=== PATIENT | male | born 1975 | race Two or more races ===

== ENCOUNTER 2017-03-31 06:22 | Emergency (ER) | payer MEDICAID ==
[~2017-03-31] VITALS: Ht 175.3 cm; Wt 124.3 kg
[~2017-03-31 06:22] MED LIST: OME20GT PO; PEGINTRON; PROPANOLOL PO; RIBA200C12; [UNRECOGNIZED DRUG - CODE]
[2017-03-31 06:29] VITALS: BP 202/98
[2017-03-31] MEDS ORDERED: cloNIDine HCL 0.1 MG TAB PO ONE (06:45)
[2017-03-31] MEDS ORDERED: KETOROLAC TROMETH 60MG/2ML VIAL IM ONE (07:45)
== END 2017-03-31 08:27 | disposition home or self-care (01) ==
LOC: ER 06:24
DX: S46.001A Unspecified injury of muscle(s) and tendon(s) of the rotator cuff of right shoulder, initial encounter (principal); R03.0 Elevated blood-pressure reading, without diagnosis of hypertension; M62.830 Muscle spasm of back; Z88.6 Allergy status to analgesic agent; Z88.1 Allergy status to other antibiotic agents; Z79.899 Other long term (current) drug therapy; X58.XXXA Exposure to other specified factors, initial encounter; Y93.89 Activity, other specified; Y92.89 Other specified places as the place of occurrence of the external cause; Y99.8 Other external cause status
CPT/HCPCS: 96372; 99283; J1885

== ENCOUNTER 2019-09-25 21:53 | Emergency (ER) | payer MEDICAID ==
[~2019-09-25] VITALS: Ht 175.3 cm; Wt 122.9 kg
[~2019-09-25 21:53] MED LIST changes: -RIBA200C12; +RIBA200C38
[2019-09-25 22:43] LABS: Albumin 3.5 g/dL (3.4-5.0); Anion Gap 4 (5-15); Blood Urea Nitrogen 17 mg/dL (7-18); Calcium 8.6 mg/dL (8.5-10.1); Carbon Dioxide 29 mmol/L (21-32); Chloride 101 mmol/L (98-107); GFR African American 103 mL/min; GFR Non-African American 86 mL/min; Glucose 99 mg/dL (74-106); Sodium 134 mmol/L (136-145)
[2019-09-25 22:48] LABS: Alanine Aminotransferase 84 U/L (16-61); Alkaline Phosphatase 70 U/L (45-117); Aspartate Aminotransferase 58 U/L (15-37); Bilirubin, Total 0.5 mg/dL (0.2-1.0)
[2019-09-25 22:53] LABS: Basophils # (auto) 0.1 10 ^3/uL (0-0.2); Basophils % (auto) 0.7 % (0.0-2.0); Eosinophils # (auto) 0.3 10 ^3/uL (0-0.8); Hematocrit 40.3 % (41.0-53.0); Hemoglobin 14.1 g/dL (13.5-17.5); Lymphocytes # (auto) 1.1 10 ^3/uL (0.4-5.4); Mean Corpuscular Hemoglobin 31.8 pg (28.0-32.0); Mean Corpuscular Hgb Conc. 34.9 g/dL (32.0-36.0); Mean Corpuscular Volume 91.1 fL (80.0-100.0); Monocytes # (auto) 1.1 10 ^3/uL (0-1.3); Monocytes % (auto) 11.6 % (0.0-12.0); Neutrophils # (auto) 6.6 10 ^3/uL (1.6-8.6); Neutrophils % (auto) 72.7 % (37.0-80.0); Platelet Count (auto) 215 10^3/uL (140-450); Red Blood Cells 4.42 10^6/uL (4.5-5.90); Red Cell Distribution Width 13.2 % (11.8-14.3); White Blood Cell 9.1 10^3/uL (4.4-10.8)
[2019-09-25 23:39] VITALS: BP 135/82
[2019-09-26] MEDS ORDERED: cefTRIAXone SOD 1,000 MG VL IM ONE
== END 2019-09-26 00:22 | disposition home or self-care (01) ==
LOC: ER 21:59
DX: J18.9 Pneumonia, unspecified organism (principal); K21.9 Gastro-esophageal reflux disease without esophagitis; I10 Essential (primary) hypertension; Z87.891 Personal history of nicotine dependence
CPT/HCPCS: 36415; 71046; 80053; 84484; 85025; 96372; 99284; J0696

== ENCOUNTER 2024-05-08 10:26 | Day surgery (SDC) | payer OTHER ==
[~2024-05-08] VITALS: Ht 175.3 cm; Wt 117.0 kg
[~2024-05-08 10:26] MED LIST changes: +HYDR1TAB97 PO; +LISI2.5T47 PO; -OME20GT PO; -PEGINTRON; -PROPANOLOL PO; -RIBA200C38
[2024-05-08] MEDS ORDERED: fentaNYL CITRATE 100 MCG/2 ML VL ONE (10:45)
[2024-05-08] MEDS ORDERED: PROPOFOL 10 MG/ML 20 ML IV ONE ×2 (10:45→11:28)
[2024-05-08 11:45] VITALS: PULSE 96; RESP 11; TEMP 99; O2SAT 95
[2024-05-08 12:06] VITALS: BP 120/85; PULSE 76; RESP 14; O2SAT 96
== END 2024-05-08 12:20 | disposition home or self-care (01) ==
LOC: GI 10:26
PROVIDERS: ATTEND Internal Medicine Gastroenterology
DX: K92.1 Melena (principal); D12.4 Benign neoplasm of descending colon; D12.2 Benign neoplasm of ascending colon; D12.3 Benign neoplasm of transverse colon; K57.30 Diverticulosis of large intestine without perforation or abscess without bleeding; K64.8 Other hemorrhoids; I10 Essential (primary) hypertension; F17.290 Nicotine dependence, other tobacco product, uncomplicated; Z79.899 Other long term (current) drug therapy; Z88.2 Allergy status to sulfonamides; Z88.5 Allergy status to narcotic agent
CPT/HCPCS: 45380; 45385; 88305; J2704; J3010; J7030